=== PATIENT | female | born 1970 | race African-American/Black ===

== ENCOUNTER 2018-03-08 16:20 | Emergency (ER) | payer OTHER ==
[~2018-03-08] VITALS: Ht 167.6 cm; Wt 72.6 kg
[~2018-03-08 16:20] MED LIST: ACYCLOVIR 400400 MG PO; AUGMENTIN 875875 MG PO; FLAGYL500 MG PO; LYRICA 50 MG50 MG; NORCO 5-325 TA1 EACH PO; PEPCID40 MG PO; PHENERGAN 25 MG25 M1 PO; PROTONIX40 MG PO; REGLAN 5 MG TAB5 M1 PO; VITAMIN D5000 UNIT PO; ZOFRAN ODT4 MG PO
[2018-03-08 16:21] VITALS: BP 110/86
[2018-03-08] MEDS ORDERED: MOBIC15 MG PO (17:08)
[2018-03-08] MEDS ORDERED: HYDROCODONE-AP1 EAC6 PO (17:08)
[2018-03-08] MEDS ORDERED: NORFLEX100 MG PO (17:08)
== END 2018-03-09 07:13 | disposition home or self-care (01) ==
LOC: ER 16:20
DX: G89.29 Other chronic pain (principal); M54.2 Cervicalgia; M62.838 Other muscle spasm; M06.9 Rheumatoid arthritis, unspecified; Z90.711 Acquired absence of uterus with remaining cervical stump; Z88.6 Allergy status to analgesic agent; Z98.890 Other specified postprocedural states

== ENCOUNTER 2018-03-12 05:16 | Emergency (ER) | payer OTHER ==
[~2018-03-12] VITALS: Ht 167.6 cm; Wt 72.6 kg
[~2018-03-12 05:16] MED LIST changes: +HYDROCODONE-AP1 EAC6 PO; +MOBIC15 MG PO; +NORFLEX100 MG PO
[2018-03-12] MEDS ORDERED: TYLENOL EXTRA500 MG PO (05:42)
[2018-03-12] MEDS ORDERED: OMEPRAZOLE 20 M20 M1 PO (05:43)
[2018-03-12 05:44] LABS: ABSOLUTE NEUTROPHILS 1.8 thou/uL (1.4-8.2); BASOPHILS 0.5 % (0.0-2.0); EOSINOPHILS 2.5 % (0.0-3.0); HEMATOCRIT 38.9 % (37.0-47.0); HEMOGLOBIN 12.8 gm/dL (12.0-15.0); LYMPHOCYTES 56.8 % (24.0-44.0); MCH 28.5 pg (26.0-34.0); MCHC 32.8 g/dL (28.0-37.0); MCV 86.7 fL (80.0-100.0); MONOCYTES 7.9 % (1.0-8.0); PLATELET COUNT 326 thou/uL (150-400); POLYS 32.3 % (36.0-66.0); RBC 4.48 mil/uL (4.20-5.00); RDW 14.4 % (10.5-14.5); WBC 5.4 thou/uL (4.0-11.0)
[2018-03-12 05:52] LABS: CALCIUM 8.6 mg/dL (8.5-10.1); POTASSIUM 4.2 mmol/L (3.5-5.1)
[2018-03-12] MEDS ORDERED: SENNA8.6 MG PO (06:14)
[2018-03-12 09:40] LABS: ALBUMIN 3.6 g/dL (3.4-5.0); DIRECT BILIRUBIN < 0.1 mg/dL (<0.1-0.3); SGOT 28 U/L (15-37); SGPT 41 U/L (30-65); TOTAL BILIRUBIN 0.2 mg/dL (<0.1-1.0); TOTAL PROTEIN 7.4 g/dL (6.4-8.2)
[2018-03-12 10:05] LABS: URINE BILIRUBIN NEGATIVE (Negative); URINE BLOOD NEGATIVE (Negative); URINE CLARITY CLEAR; URINE COLOR YELLOW; URINE GLUCOSE-RANDOM* NEGATIVE (Negative); URINE KETONES NEGATIVE (Negative); URINE LEUKOCYTES-REFLEX NEGATIVE (Negative); URINE NITRITE-REFLEX NEGATIVE (Negative); URINE PROTEIN (DIPSTICK) NEGATIVE (Negative); URINE UROBILINOGEN 0.2 E.U./dl (0.2-1.0)
[2018-03-12 10:49] VITALS: BP 136/78
== END 2018-03-12 07:30 | disposition home or self-care (01) ==
LOC: ER 05:16
PROVIDERS: Emergency Medicine; Student in an Organized Health Care Education/Training Program
DX: K59.00 Constipation, unspecified (principal); M06.9 Rheumatoid arthritis, unspecified; Z90.711 Acquired absence of uterus with remaining cervical stump; Z88.5 Allergy status to narcotic agent; Z88.6 Allergy status to analgesic agent

== ENCOUNTER 2018-04-22 05:17 | Emergency (ER) | payer OTHER ==
[~2018-04-22] VITALS: Ht 167.6 cm; Wt 72.6 kg
[~2018-04-22 05:17] MED LIST changes: +OMEPRAZOLE 20 M20 M1 PO; +SENNA8.6 MG PO; +TYLENOL EXTRA500 MG PO
[2018-04-22 05:19] VITALS: BP 122/83
[2018-04-22] MEDS ORDERED: TOPAMAX 25 MG T25 M1 PO (05:24)
[2018-04-22] MEDS ORDERED: ROBAXIN 750 MG750 M1 PO (05:24)
== END 2018-04-22 06:44 | disposition home or self-care (01) ==
LOC: ER 05:17
DX: G89.29 Other chronic pain (principal); M54.2 Cervicalgia; M06.9 Rheumatoid arthritis, unspecified; Z90.710 Acquired absence of both cervix and uterus; Z88.5 Allergy status to narcotic agent; Z88.8 Allergy status to other drugs, medicaments and biological substances

== ENCOUNTER 2021-03-13 12:14 | Emergency (ER) | payer OTHER ==
[~2021-03-13] VITALS: Ht 167.6 cm; Wt 77.1 kg
--- NOTE | ~2021-03-13 | EMS ---
[address] [address] EMS Patient Care Report Name: REBEKAH BOOKER Room #: DEP JJ Tran#: [id number] Admission: 03/13/21 Attend Phys: Discharge: 03/13/21 Date of : 68 Report #: [id number] THIS REPORT FOR: //name// Report Transmitted: 03/16/2021 10:54 EMS Care Summary [place], [place]/[facility] Incident [id number] @ 03/13/2021 11:30 Incident Location [address] [place] [id number] Patient REBEKAH BRANHAM Female, 50 Years 1970 Patient Address [address] [place], [place] [id number] Patient History Disc Degenerations, Patient Allergies Morphine, Patient Medications Methocarbamol, Zofran, Chief Complaint Left Hip Pain Disposition Transported No Lights/[place] Dispatch Reason Sick Person Transported To [facility] Narrative Pt stated that she woke up this morning with pain in her left hip, cramping sensation that thru out the morning started to hurt more and Pt rated her pain at a 10/10 with no relief. Pt stated she got up to move but could not stand up and and put weight on her leg with out the pain going to her left hip. Pt rated [address] [address] EMS Patient Care Report Name: REBEKAH BOOKER Room #: DEP ER [place]#: [id number] Admission: 03/13/21 Attend Phys: Discharge: 03/13/21 Date of : 68 Report #: [id number] her pain at a 10/10 with no other complaints noted Pt found laying in bed in her bedroom on her right side, Pt is with Left hip pain noted on her left side that started this morning and has gotten worse thru out the day and Pt rated her pain at a 10/10. Pt is with no left leg shorting or rotation noted and no deformity noted on Pt left hip area but Pt would C/O severe pain in her left pelvis area. Pt was moved to stretcher via [employer] due to Pt not being able to stand up and move or sit in a stair chair. Pt is with no other complaints and received by RN in ER. Initial Vitals @12:02P: 63,R: 18,BP: 114/75,Pain: 10/10,GCS: 15,SpO2: 98,Revised Trauma: 12, @11:56P: 57,R: 18,BP: 117/74,Pain: 10/10,GCS: 15,SpO2: 100,Revised Trauma: 12, Assessments @11:44MENTAL:Event Oriented,Person Oriented,Place Oriented,Time Oriented,SKIN:HEENT:Head/Face: No Abnormalities,Neck/Airway: No Abnormalities,LUNG SOUNDS:General: No Abnormalities,ABDOMEN:General: No Abnormalities,PELVIS//GI:Pelvis Other,Tenderness,EXTREMITIES:Capillary Refill: Right Upper: < 2 Sec,Left Arm: No Abnormalities,Right Arm: No Abnormalities,Left Leg: No Abnormalities,Right Leg: No Abnormalities,PULSE:Radial: 2+ Normal,NEURO:No Abnormalities,@12:09MENTAL:Event Oriented,Place Oriented,Time Oriented,Person Oriented,SKIN:HEENT:Head/Face: No Abnormalities,Neck/Airway: No Abnormalities,LUNG SOUNDS:General: No Abnormalities,ABDOMEN:General: No Abnormalities,PELVIS//GI:Tenderness,Pelvis Other,EXTREMITIES:Capillary Refill: Left Upper: < 2 Sec,Left Arm: No Abnormalities,Right Arm: No Abnormalities,Left Leg: No Abnormalities,Right Leg: No Abnormalities,PULSE:Radial: 2+ Normal,NEURO:No Abnormalities, Impression Pain (Non-Traumatic) Procedures @12:09 ALS Assessment Response: UnchangedSucceeded Timeline 11:,Call Received :,Dispatch Notified 11:30,Dispatched 11:31,En Route 11:42,On Scene 11:44,At Patient 11:56,BP: 117/74 M,PULSE: 57,RR: 18 R,SPO2: 100 Ox,ETCO2: ,BG: ,PAIN: 10,GCS: 15, 12:00,Depart Scene [address] [address] EMS Patient Care Report Name: ADEREBEKAH Room #: DEP JJ Tran#: [id number] Admission: 03/13/21 Attend Phys: Discharge: 03/13/21 Date of : 68 Report #: [id number] 12:02,BP: 114/75 M,PULSE: 63,RR: 18 R,SPO2: 98 Ox,ETCO2: ,BG: ,PAIN: 10,GCS: 15, 12:09,ALS Assessment,Response: UnchangedSucceeded, 12:10,At Destination 12:26,Call Closed Disclaimer v1.1 Copyright 2021 [employer] This EMS Care Summary contains data elements from the applicable legal record (which may be displayed differently). It is designed to provide pertinent information for the following purposes: continuity of care, clinical quality, and state data reporting. The complete legal record is available to ED staff and administrators of the receiving hospital in [employer]'s Patient Tracker. All data is provided "as is."
[~2021-03-13 12:14] MED LIST changes: +ROBAXIN 750 MG750 M1 PO; +TOPAMAX 25 MG T25 M1 PO
[2021-03-13 12:51] LABS: HEMATOCRIT 37.3 % (37.0-47.0); HEMOGLOBIN 12.3 gm/dL (12.0-15.0); MCH 28.6 pg (26.0-34.0); MCV 86.6 fL (80.0-100.0); RDW 14.3 % (10.5-14.5); WBC 5.2 thou/uL (4.0-11.0)
[2021-03-13 13:15] LABS: PLATELET COUNT 308 thou/uL (150-400)
[2021-03-13 13:25] LABS: CALCIUM 9.2 mg/dL (8.5-10.1); CREATININE 0.8 mg/dL (0.6-1.0); POTASSIUM 4.9 mmol/L (3.5-5.1)
[2021-03-13 14:27] LABS: URINE BILIRUBIN NEGATIVE (Negative); URINE BLOOD NEGATIVE (Negative); URINE CLARITY CLEAR; URINE COLOR YELLOW; URINE GLUCOSE-RANDOM* NEGATIVE (Negative); URINE KETONES NEGATIVE (Negative); URINE LEUKOCYTES-REFLEX NEGATIVE (Negative); URINE NITRITE-REFLEX NEGATIVE (Negative); URINE PROTEIN (DIPSTICK) NEGATIVE (Negative); URINE SPECIFIC GRAVITY 1.015 (1.005-1.035); URINE UROBILINOGEN 0.2 E.U./dl (0.2-1.0)
[2021-03-13] MEDS ORDERED: IBUPROFEN 800800 MG PO (14:45)
[2021-03-13] MEDS ORDERED: MEDROLDOSEPACK PO (14:45)
[2021-03-13 15:15] VITALS: BP 113/68
== END 2021-03-13 15:18 | disposition home or self-care (01) ==
LOC: ER 12:14
PROVIDERS: Emergency Medicine
DX: M25.552 Pain in left hip (principal); Z98.51 Tubal ligation status; Z90.710 Acquired absence of both cervix and uterus; Z79.891 Long term (current) use of opiate analgesic; Z79.899 Other long term (current) drug therapy; Z88.5 Allergy status to narcotic agent; Z88.8 Allergy status to other drugs, medicaments and biological substances